=== PATIENT | male | born 2000 | race Caucasian/White ===

== ENCOUNTER 2022-01-23 10:37 | Emergency (ER) | payer BC ==
[~2022-01-23] VITALS: Ht 180.3 cm; Wt 69.8 kg
[2022-01-23] MEDS ORDERED: IBUP-1022 PO (10:51)
[2022-01-23 12:08] VITALS: BP 102/60
== END 2022-01-23 12:09 | disposition home or self-care (01) ==
LOC: M ED 10:37
DX: S52.511A Displaced fracture of right radial styloid process, initial encounter for closed fracture (principal); V00.141A Fall from scooter (nonmotorized), initial encounter; Y92.410 Unspecified street and highway as the place of occurrence of the external cause; Y93.I9 Activity, other involving external motion; Y99.9 Unspecified external cause status